=== PATIENT | female | born 1945 | race Native Hawaiian/Other Pacific Islander ===

== ENCOUNTER 2016-09-21 10:44 | Outpatient (CLI) | payer OTHER ==
[~2016-09-21 10:44] MED LIST: CEFD300C2 PO; CELEBREX200 MG PO; CHLOSUS43 PO; CIPR500T PO; CRESTOR5 MG PO; ESTR0.6211 PO; LEVO0.117 PO; MEDROL DOSEPAK4 MG OR; MILLIPRED DP5 MG OR; MOME50SP; NEXIUM40 M1 OR; PROAIR HFA IN; Z-PAK PO
== END 2016-09-21 19:23 | disposition home or self-care (01) ==
LOC: MAMMO 10:44
DX: Z12.31 Encounter for screening mammogram for malignant neoplasm of breast (principal); Z13.820 Encounter for screening for osteoporosis
CPT/HCPCS: G0202-TC

== ENCOUNTER 2017-06-03 14:10 | Outpatient (CLI) | payer OTHER ==
[2017-06-03 14:30] LABS: PLATELET COUNT 261 K/uL (152-353)
[2017-06-03 14:41] LABS: POTASSIUM 4.8 mmol/L (3.6-5.2)
== END 2017-06-03 22:07 | disposition home or self-care (01) ==
LOC: LABW 14:10
PROVIDERS: Specialist
DX: I10 Essential (primary) hypertension (principal)
CPT/HCPCS: 36415; 80048; 85027

== ENCOUNTER 2017-06-15 08:04 | Emergency (ER) | payer OTHER ==
[~2017-06-15] VITALS: Ht 160 cm; Wt 93.0 kg
[2017-06-15 09:19] LABS: PLATELET COUNT 278 K/uL (152-353)
[2017-06-15 09:32] LABS: POTASSIUM 3.4 mmol/L (3.6-5.2)
[2017-06-15 09:55] VITALS: BP 145/65; TEMP 98.1
== END 2017-06-15 09:57 | disposition home or self-care (01) ==
LOC: ED 08:04
PROVIDERS: Family Medicine
DX: R21 Rash and other nonspecific skin eruption (principal); R23.8 Other skin changes; Z98.890 Other specified postprocedural states
CPT/HCPCS: 36415; 80048; 85027; 96374; 96376; 99284; J1200; J2930

== ENCOUNTER 2017-09-29 09:47 | Outpatient (CLI) | payer OTHER | END 2017-09-29 23:59 | disposition home or self-care (01) | LOC: MAMMO 09:47 | DX: Z12.31 Encounter for screening mammogram for malignant neoplasm of breast (principal) ==

== ENCOUNTER 2017-12-22 08:27 | Emergency (ER) | payer OTHER ==
[~2017-12-22] VITALS: Ht 160 cm; Wt 95.3 kg
[2017-12-22 08:27] VITALS: TEMP 98.2
[2017-12-22] MEDS ORDERED: NEXIUM 24HR20 MG PO (08:55)
[2017-12-22] MEDS ORDERED: MOBIC15 MG PO (08:55)
[2017-12-22] MEDS ORDERED: EZET10TA13 PO (08:56)
[2017-12-22 09:05] LABS: POTASSIUM 3.7 mmol/L (3.6-5.2); SODIUM 140 mmol/L (136-145)
[2017-12-22 09:09] LABS: PLATELET COUNT 278 K/uL (152-353)
[2017-12-22 10:18] VITALS: BP 164/92
== END 2017-12-22 10:18 | disposition short-term general hospital (02) ==
LOC: ED 08:27
PROVIDERS: Emergency Medicine
DX: I21.9 Acute myocardial infarction, unspecified (principal); R53.1 Weakness
CPT/HCPCS: 36415; 80053; 82550; 82553; 84443; 84484; 85027; 85379; 93005; 99285; J2270

== ENCOUNTER 2018-10-18 12:53 | Outpatient (CLI) | payer OTHER ==
[~2018-10-18 12:53] MED LIST changes: +EZET10TA13 PO; +MOBIC15 MG PO; +NEXIUM 24HR20 MG PO
== END 2018-10-18 22:58 | disposition home or self-care (01) ==
LOC: MAMMO 12:53
DX: Z12.31 Encounter for screening mammogram for malignant neoplasm of breast (principal)

== ENCOUNTER 2020-09-12 10:57 | Outpatient (CLI) | payer OTHER | END 2020-09-12 22:06 | disposition home or self-care (01) | LOC: RAD 10:57 | PROVIDERS: ATTEND Nurse Practitioner Family | DX: M79.672 Pain in left foot (principal); R60.0 Localized edema ==

== ENCOUNTER 2020-09-17 15:23 | Outpatient (CLI) | payer OTHER | END 2020-09-17 19:25 | disposition home or self-care (01) | LOC: US 15:23 | PROVIDERS: ATTEND Nurse Practitioner Family | DX: M79.672 Pain in left foot (principal); R60.0 Localized edema; E03.8 Other specified hypothyroidism ==

== ENCOUNTER 2020-09-19 12:32 | Outpatient (CLI) | payer OTHER | END 2020-09-19 20:34 | disposition home or self-care (01) | LOC: US 12:32 | PROVIDERS: ATTEND Nurse Practitioner Family | DX: M79.672 Pain in left foot (principal); M79.671 Pain in right foot; R60.0 Localized edema; E03.8 Other specified hypothyroidism ==

== ENCOUNTER 2021-12-31 12:39 | Outpatient (CLI) | payer OTHER | END 2021-12-31 23:59 | disposition home or self-care (01) | LOC: MAMMO 12:39 | PROVIDERS: ATTEND Nurse Practitioner Family | DX: Z13.820 Encounter for screening for osteoporosis (principal); Z12.31 Encounter for screening mammogram for malignant neoplasm of breast; N95.8 Other specified menopausal and perimenopausal disorders ==

== ENCOUNTER 2023-04-02 12:47 | Outpatient (CLI) | payer OTHER | END 2023-04-02 20:08 | disposition home or self-care (01) | LOC: MAMMO 12:47 | PROVIDERS: ATTEND Nurse Practitioner Family | DX: Z12.31 Encounter for screening mammogram for malignant neoplasm of breast (principal) ==